=== PATIENT | female | born 1955 | race Caucasian/White ===

== ENCOUNTER → 2019-09-13 | Outpatient (REF) | payer BC ==
[~2019-09-13] MED LIST: ENAL10TA10 PO; LIPI80TA PO; MELO15TA28 PO; NABU-126 PO
[2019-09-17 08:20] LABS: HPV HYBRID CAPTURE II Negative (Negative)
== END ==
LOC: M LAB LCGH 11:35
PROVIDERS: ATTEND Nurse Practitioner Adult Health
DX: N95.2 Postmenopausal atrophic vaginitis (principal)
CPT/HCPCS: 87624; G0123

== ENCOUNTER → 2020-08-24 | Outpatient (CLI) | payer BC ==
[~2020-08-24] MED LIST changes: -NABU-126 PO; +NABU-51 PO
== END ==
LOC: M LABSMTC 11:21
PROVIDERS: ATTEND Anesthesiology
DX: Z01.812 Encounter for preprocedural laboratory examination (principal); Z20.828 Contact with and (suspected) exposure to other viral communicable diseases
CPT/HCPCS: C9803; U0003

== ENCOUNTER 2020-08-29 08:59 | Day surgery (SDC) | payer OTHER ==
[~2020-08-29] VITALS: Ht 152.4 cm; Wt 113.1 kg
[~2020-08-29 08:59] MED LIST changes: +LR 1,000 ML IV ONE; +ceFAZolin SOD 2 GM in IV 1 EA IV ONE
[2020-08-29] MEDS ORDERED: LIDOCAINE 1% MDV 20ML VIAL ONE (09:00)
[2020-08-29] MEDS ORDERED: ROPIvacaine 0.5% 30ML INJECTION (J2795 PER 1MG) ONE (09:00)
[2020-08-29] MEDS ORDERED: dexameTHASONE 10MG/1ML VIAL PRES.FREE (J1100 PER 1MG) ONE (09:00)
[2020-08-29] MEDS ORDERED: EPINEPHrine 1MG/ML INJ 30ML MD-VIAL As Ordered ONE (10:33)
[2020-08-29] MEDS ORDERED: propofoL 200 MG/20 ML VIAL As Ordered ONE (10:52)
[2020-08-29] MEDS ORDERED: dexameTHASONE 4 MG/ML 1ML VIAL (J1100 PER 1MG) As Ordered ONE (10:52)
[2020-08-29] MEDS ORDERED: LIDOCAINE 2% 100MG/5ML SDV (FOR ANES.) As Ordered ONE (10:52)
[2020-08-29] MEDS ORDERED: fentaNYL 100 MCG/2 ML INJECTION (J3010) As Ordered ONE ×2 (10:52→11:04)
[2020-08-29] MEDS ORDERED: ROCURONIUM BROMIDE 50 MG/5 ML VIAL As Ordered ONE (10:53)
[2020-08-29] MEDS ORDERED: ONDANSETRON 4MG/2ML VIAL As Ordered ONE ×2 (10:53→14:39)
[2020-08-29] MEDS ORDERED: MIDAZOLAM INJ 2MG/2ML VIAL (J2250 PER 1MG) As Ordered ONE (11:04)
[2020-08-29] MEDS ORDERED: MIDAZOLAM INJ 2MG/2ML VIAL (J2250 PER 1MG) IV ONE (11:45)
[2020-08-29] MEDS ORDERED: fentaNYL 100 MCG/2 ML INJECTION (J3010) IV ONE (11:45)
[2020-08-29] MEDS ORDERED: ePHEDrine SULFATE 25 MG/5 ML(5MG/ML) SYRINGE As Ordered ONE (13:37)
[2020-08-29] MEDS ORDERED: KETOROLAC 60MG 2ML VIAL As Ordered ONE (14:01)
[2020-08-29] MEDS ORDERED: ACETAMINOPHEN 1000MG 100ML IV BTL (OFIRMEV) (J0131 PER 10MG) As Ordered ONE (14:01)
[2020-08-29] MEDS ORDERED: SUGAMMADEX SODIUM 500 MG/5 ML VIAL (BRIDION) As Ordered ONE (14:01)
[2020-08-29] MEDS ORDERED: oxyCODONE 5MG TAB As Ordered ONE (15:37)
[2020-08-29] MEDS: oxyCODONE 5MG TAB PO PRN ×2 (15:41→16:42)
[2020-08-29] MEDS ORDERED: ONDANSETRON 4MG/2ML VIAL IV PRN (15:45)
[2020-08-29] MEDS ORDERED: PERCOCET 5MG/325MG TAB PO PRN ×2 (15:45)
[2020-08-29] MEDS ORDERED: LR 1,000 ML IV SCH ×2 (15:45)
[2020-08-29] MEDS ORDERED: fentaNYL 100 MCG/2 ML INJECTION (J3010) IV PRN (15:45)
[2020-08-29] MEDS ORDERED: MORPHINE 2 MG/ML 1ML VIAL (J2270) IV PRN (15:45)
[2020-08-29] MEDS ORDERED: HYDROMORPHONE HCL 0.5 MG/ 0.5 ML SYRINGE (J1170 PER 1) IV PRN (15:45)
[2020-08-29 16:45] VITALS: BP 148/73
--- NOTE | 2020-09-06 08:59 | RO ---
DATE OF OPERATION: 08/29/2020 PREOPERATIVE DIAGNOSIS: Right shoulder rotator cuff tear. POSTOPERATIVE DIAGNOSES: 1. Right shoulder rotator cuff tear. 2. Right shoulder biceps tendinitis. PROCEDURES: 1. Right shoulder arthroscopic double-row rotator cuff repair. 2. Right shoulder arthroscopic biceps tenotomy. SURGEON: Luis Navarro M.D. CANDY PACKER: Rd Mckeon ANESTHESIA: Right interscalene nerve block with a general endotracheal tube anesthetic. COMPLICATIONS: None. ESTIMATED BLOOD LOSS: Less than 20 mL. FINDINGS: He had a complete rupture of the supraspinatus tendon that was retracted to the level of the glenoid. Biceps was significantly frayed. The glenohumeral articular cartilage was, however, intact. DESCRIPTION OF PROCEDURE: Antibiotics were given intravenously preoperatively. A right interscalene nerve block and then a general endotracheal tube anesthetic were established, and she was placed in a semi-beach chair position; SPIDER shoulder boyer was utilized. The right shoulder area was then carefully prepped and draped in the usual sterile fashion. After appropriate timeout, a posterior visualization portal was established followed by an anterior interval working portal and we explored the joint with the findings as noted above. A large tear of the rotator cuff was noted from above. Posteriorly, the rotator cuff was intact. The glenohumeral articulations and the labrum throughout the joint were intact. The biceps was significantly frayed, actually just hanging by a thread. Thus, we elected to perform a formal biceps tenotomy which was done with the ablator wand. I then placed the scope in the subacromial space. We had actual visualization and bursectomy performed with a shaver. We identified the large rotator cuff tear. It was fairly mobile but it was delaminated; that is it was in two pieces - a superior and an inferior piece. I established a better visualization portal more posterior and laterally using a spinal needle localization and switching-stick technique. I then debrided the footprint of the supraspinatus tendon using a ring curette and a curved 4.0 shaver. I then placed two medial row anchors from the [employer] SpeedBridge kit. I first passed the anterior medial row anchor and then I passed the FiberTape through the anterior aspect of the supraspinatus tendon. I did a double pass, one through the inferior lamina and on the superior lamina of the bilateral rotator cuff tear remnant. I then, in addition, passed both of the retention suture limbs in a similar fashion doing double bites. Then, all those four limbs were docked anteriorly. I then, under spinal needle localization passed the posteromedial row anchor by first placing the spinal needle and then the punch. And then, in a similar fashion, the FiberTapes were passed up through both lamina of the rotator cuff tear and then docked anteriorly, and then both limbs of the retention suture also passed in a similar fashion. Once all limbs were passed, I then placed the posterolateral row first. One limb from the retention suture from the posteromedial anchor, one limb of the FiberTape from the posteromedial anchor, and one limb from the retention sutures from the anteromedial anchor, and one limb of the FiberTape from the anteromedial anchor were passed out laterally through the cannula that we had established laterally. And then, they were loaded onto posterolateral row anchor. Then the punch was placed in appropriate position and then the anchor inserted making sure we had good tension on all four limbs, and then the anchor was inserted. It is noteworthy that her bone was actually very soft but the [employer] SwiveLock anchors did hold and then all limbs were cut short with a FiberTape cutter. All four remaining limbs were then passed out through the lateral cannula, loaded on the anterolateral row SwiveLock and then the punch was placed appropriately and then the anchor placed, making sure we had good tension on all four limbs and then the anchor was passed. Again, the bone was noted to be very soft but it did hold. Photographs were taken before and after to document the repair. We well a good repair actually had been obtained, but we would like to treat her with prolonged abduction immobilization in the brace for at least six weeks as I consider this a large tear with questionable bone quality laterally. We copiously irrigated out the subacromial space. The wounds were closed with interrupted nylon sutures covered by Adaptic dry sterile bulky dressing. She was placed in her abduction pillow brace and then awakened from general endotracheal tube anesthesia after having tolerated the procedure well, and then transferred to the recovery room in stable condition. Mr. José Luis Smith was critical to the success of this difficult procedure by helping me to hold the camera at appropriate times, helped with hand instruments, and pass the sutures, manipulate the arm, close the wound, prepared the patient amongst many other tasks to allow me to perform the operation smoothly, efficiently and safely. CLAUDIA
== END 2020-08-29 16:45 | disposition home or self-care (01) ==
LOC: M SDC 08:59
PROVIDERS: ATTEND Orthopaedic Surgery
DX: S46.011A Strain of muscle(s) and tendon(s) of the rotator cuff of right shoulder, initial encounter (principal); Y92.89 Other specified places as the place of occurrence of the external cause; Y93.9 Activity, unspecified; Y99.9 Unspecified external cause status; M19.011 Primary osteoarthritis, right shoulder; M75.21 Bicipital tendinitis, right shoulder; I10 Essential (primary) hypertension; Z79.899 Other long term (current) drug therapy; Z88.5 Allergy status to narcotic agent; Z88.8 Allergy status to other drugs, medicaments and biological substances; Z91.81 History of falling
CPT/HCPCS: 29827; 29828; 64415; C1713; J0131; J0690; J1100; J1885; J2250; J2405; J2795; J3010